=== PATIENT | male | born 1980 | race Caucasian/White ===

== ENCOUNTER 2017-07-17 01:19 | Emergency (ER) | payer BC ==
[2017-07-17 02:05] LABS: BASO % 0.6 % (0.0-1.0); EOS # 0.1 10^3/uL (0.0-0.50); EOS % 1.8 % (0.0-3.0); HEMATOCRIT 44.6 % (42.0-52.0); HEMOGLOBIN 15.9 g/dl (14.0-18.0); IMMATURE GRANULOCYTE % 0.4 % (0-3.0); LYMPH # 2.4 10^3/uL (1.5-4.5); LYMPH % 33.5 % (24.0-44.0); MEAN CORPUSCULAR HEMOGLOBIN 32.6 pg (27.0-33.0); MEAN CORPUSCULAR HGB CONC 35.7 g/dl (32.0-36.5); MEAN CORPUSCULAR VOLUME 91.6 fl (80.0-96.0); MONO # 0.6 10^3/uL (0.0-0.8); MONO % 8.8 % (0.0-5.0); NEUTROPHILS # 3.9 10^3/uL (1.8-7.7); NEUTROPHILS % 54.9 % (36.0-66.0); PLATELET COUNT, AUTOMATED 234 10^3/uL (150-450); RED BLOOD COUNT 4.87 10^6/uL (4.30-6.10); RED CELL DISTRIBUTION WIDTH 11.9 % (11.5-14.5); WHITE BLOOD COUNT 7.1 10^3/uL (4.0-10.0)
[2017-07-17 02:22] LABS: ALBUMIN/GLOBULIN RATIO 1.14 (1.00-1.93); ALKALINE PHOSPHATASE 78 U/L (45-117); ALT/SGPT 28 U/L (12-78); AMPHETAMINES LEVEL URINE NEGATIVE (NEGATIVE); ANION GAP 9 MEQ/L (8-16); AST/SGOT 16 U/L (7-37); BARBITURATES URINE NEGATIVE (NEGATIVE); BENZODIAZEPINES URINE NEGATIVE (NEGATIVE); BILIRUBIN,DIRECT < 0.1 MG/DL (0.0-0.2); BILIRUBIN,TOTAL 0.2 MG/DL (0.2-1.0); BLOOD UREA NITROGEN 15 MG/DL (7-18); CALCIUM LEVEL 8.6 MG/DL (8.5-10.1); CANNABINOIDS URINE NEGATIVE (NEGATIVE); CARBON DIOXIDE LEVEL 26 MEQ/L (21-32); CHLORIDE LEVEL 109 MEQ/L (98-107); COCAINE METABOLITE URINE NEGATIVE (NEGATIVE); CPK CREATINE PHOSPHOKINASE 101 U/L (39-308); CREATININE FOR GFR 0.81 MG/DL (0.70-1.30); ETHYL ALCOHOL (ETHANOL) 0.214 % (0.000-0.010); GLOMERULAR FILTRATION RATE > 60.0 (>60); GLUCOSE, FASTING 70 MG/DL (70-100); METHADONE URINE NEGATIVE (NEGATIVE); OPIATES URINE NEGATIVE (NEGATIVE); PHENCYCLIDINE URINE NEGATIVE (NEGATIVE); POTASSIUM SERUM 3.9 MEQ/L (3.5-5.1); SALICYLATE LEVEL 3.3 MG/DL (5.0-30.0); SODIUM LEVEL 144 MEQ/L (136-145); TOTAL PROTEIN 7.5 GM/DL (6.4-8.2)
[2017-07-17 02:43] LABS: ACETAMINOPHEN LEVEL < 2.0 UG/ML (10.0-30.0)
== END 2017-07-17 13:05 | disposition home or self-care (01) ==
LOC: M ED 01:19
DX: T50.992A Poisoning by other drugs, medicaments and biological substances, intentional self-harm, initial encounter (principal); Y92.018 Other place in single-family (private) house as the place of occurrence of the external cause; F10.229 Alcohol dependence with intoxication, unspecified; Y90.1 Blood alcohol level of 20-39 mg/100 ml; R45.851 Suicidal ideations; Z91.030 Bee allergy status; F17.210 Nicotine dependence, cigarettes, uncomplicated
CPT/HCPCS: 93005

== ENCOUNTER → 2020-01-24 | Outpatient (REF) | payer BC ==
[2020-01-24 16:07] LABS: BASO % 0.8 % (0.0-1.0); EOS # 0.1 10^3/uL (0.0-0.5); EOS % 1.7 % (0.0-3.0); HEMATOCRIT 46.1 % (42.0-52.0); HEMOGLOBIN 15.9 g/dl (13.5-17.5); LYMPH # 1.7 10^3/uL (1.5-5.0); LYMPH % 31.7 % (24.0-44.0); MEAN CORPUSCULAR HEMOGLOBIN 32.4 pg (27.0-33.0); MEAN CORPUSCULAR HGB CONC 34.5 g/dl (32.0-36.5); MEAN CORPUSCULAR VOLUME 93.9 fl (80.0-96.0); MONO # 0.5 10^3/uL (0.0-0.8); MONO % 9.9 % (0.0-5.0); NEUTROPHILS # 2.9 10^3/uL (1.5-8.5); NEUTROPHILS % 55.5 % (36.0-66.0); PLATELET COUNT, AUTOMATED 233 10^3/uL (150-450); RED BLOOD COUNT 4.91 10^6/uL (4.30-6.10); WHITE BLOOD COUNT 5.3 10^3/uL (4.0-10.0)
[2020-01-24 16:22] LABS: ALBUMIN 3.6 GM/DL (3.2-5.2); ALT/SGPT 37 U/L (12-78); BILIRUBIN,TOTAL 0.4 MG/DL (0.2-1.0); BLOOD UREA NITROGEN 17 MG/DL (7-18); CARBON DIOXIDE LEVEL 30 MEQ/L (21-32); CHLORIDE LEVEL 103 MEQ/L (98-107); CHOLESTEROL LEVEL 205 MG/DL (<200); CHOLESTEROL RISK RATIO 3.153 (<5); CREATININE FOR GFR 0.86 MG/DL (0.70-1.30); GLOMERULAR FILTRATION RATE > 60.0 (>60); GLUCOSE, FASTING 84 MG/DL (70-100); HDL CHOLESTEROL 65 MG/DL (>40); LDL CHOLESTEROL 126 MG/DL (<100); NON-HDL-C 140 MG/DL; POTASSIUM SERUM 5.1 MEQ/L (3.5-5.1); SODIUM LEVEL 136 MEQ/L (136-145); TRIGLYCERIDES LEVEL 71 MG/DL (<150)
== END ==
LOC: M SFHCADAM 15:53
PROVIDERS: ATTEND Family Medicine
DX: Z00.00 Encounter for general adult medical examination without abnormal findings (principal); E66.3 Overweight; R03.0 Elevated blood-pressure reading, without diagnosis of hypertension

== ENCOUNTER → 2021-09-25 | Outpatient (CLI) | payer BC | LOC: M RAD 09:09 | PROVIDERS: ATTEND Family Medicine | DX: R10.811 Right upper quadrant abdominal tenderness (principal) ==

== ENCOUNTER → 2021-12-06 | Outpatient (REF) | payer BC ==
[2021-12-06 14:10] LABS: BASO % 0.8 % (0.0-1.0); EOS # 0.1 10^3/uL (0.0-0.5); EOS % 1.5 % (0.0-3.0); HEMATOCRIT 45.5 % (42.0-52.0); HEMOGLOBIN 15.8 g/dl (13.5-17.5); LYMPH # 1.8 10^3/uL (1.5-5.0); LYMPH % 38.4 % (24.0-44.0); MEAN CORPUSCULAR HEMOGLOBIN 31.2 pg (27.0-33.0); MEAN CORPUSCULAR HGB CONC 34.7 g/dl (32.0-36.5); MEAN CORPUSCULAR VOLUME 89.9 fl (80.0-96.0); MONO # 0.5 10^3/uL (0.0-0.8); MONO % 10.6 % (2.0-8.0); NEUTROPHILS # 2.3 10^3/uL (1.5-8.5); NEUTROPHILS % 48.5 % (36.0-66.0); PLATELET COUNT, AUTOMATED 224 10^3/uL (150-450); RED BLOOD COUNT 5.06 10^6/uL (4.30-6.10); WHITE BLOOD COUNT 4.8 10^3/uL (4.0-10.0)
[2021-12-06 17:00] LABS: ALBUMIN 3.8 GM/DL (3.2-5.2); ALT/SGPT 33 U/L (12-78); BILIRUBIN,TOTAL 0.3 MG/DL (0.2-1.0); BLOOD UREA NITROGEN 15 MG/DL (7-18); CALCIUM LEVEL 8.8 MG/DL (8.5-10.1); CARBON DIOXIDE LEVEL 27 MEQ/L (21-32); CHLORIDE LEVEL 106 MEQ/L (98-107); CHOLESTEROL LEVEL 152 MG/DL (<200); CREATININE FOR GFR 0.96 MG/DL (0.70-1.30); FREE T4 0.99 NG/DL (0.76-1.46); GLOMERULAR FILTRATION RATE > 60.0 (>60); GLUCOSE, FASTING 98 MG/DL (70-100); HDL CHOLESTEROL 58 MG/DL (>40); LDL CHOLESTEROL 83 MG/DL (<100); NON-HDL-C 94 MG/DL; POTASSIUM SERUM 4.5 MEQ/L (3.5-5.1); SODIUM LEVEL 138 MEQ/L (136-145); THYROID STIMULATING HORMONE 0.807 uIU/ML (0.358-3.740); TRIGLYCERIDES LEVEL 56 MG/DL (<150)
== END ==
LOC: M SFHCADAM 11:12
PROVIDERS: ATTEND Family Medicine
DX: Z00.00 Encounter for general adult medical examination without abnormal findings (principal)

== ENCOUNTER 2022-01-17 14:27 | Emergency (ER) | payer BC ==
[~2022-01-17] VITALS: Ht 185.4 cm; Wt 90.9 kg
[2022-01-17 14:45] VITALS: BP 136/68
[2022-01-17] MEDS ORDERED: methylPREDNISolone 125MG 2ML VIAL IV ONE (14:45)
[2022-01-17] MEDS ORDERED: diphenhydrAMINE 50MG/ML VIAL (J1200) IV ONE (14:45)
[2022-01-17] MEDS ORDERED: FAMOTIDINE 20MG/2ML VIAL IVP ONE (14:50)
[2022-01-17] MEDS ORDERED: PRED20TA PO (15:13)
[2022-01-17] MEDS ORDERED: EPIP0.3I2 IM (15:13)
== END 2022-01-17 16:58 | disposition home or self-care (01) ==
LOC: M ED 14:27
DX: S50.862A Insect bite (nonvenomous) of left forearm, initial encounter (principal); T63.441A Toxic effect of venom of bees, accidental (unintentional), initial encounter; K21.9 Gastro-esophageal reflux disease without esophagitis; Z91.030 Bee allergy status
CPT/HCPCS: 93041; 94760; 96374; 96375; 99284; J1200; J2930

== ENCOUNTER → 2023-11-04 | Outpatient (REF) | payer OTHER ==
[~2023-11-04] MED LIST: EPIP0.3I2 IM; PRED20TA PO
[2023-11-04 14:22] LABS: BASO % 0.8 % (0.0-1.0); EOS # 0.1 10^3/uL (0.0-0.5); EOS % 2.3 % (0.0-3.0); HEMATOCRIT 47.5 % (42.0-52.0); HEMOGLOBIN 16.1 g/dl (13.5-17.5); LYMPH # 1.8 10^3/uL (1.5-5.0); LYMPH % 36.8 % (24.0-44.0); MEAN CORPUSCULAR HEMOGLOBIN 30.9 pg (27.0-33.0); MEAN CORPUSCULAR HGB CONC 33.9 g/dl (32.0-36.5); MEAN CORPUSCULAR VOLUME 91.2 fl (80.0-96.0); MONO # 0.5 10^3/uL (0.0-0.8); MONO % 10.4 % (2.0-8.0); NEUTROPHILS # 2.4 10^3/uL (1.5-8.5); NEUTROPHILS % 49.5 % (36.0-66.0); PLATELET COUNT, AUTOMATED 242 10^3/uL (150-450); RED BLOOD COUNT 5.21 10^6/uL (4.30-6.10); WHITE BLOOD COUNT 4.8 10^3/uL (4.0-10.0)
[2023-11-04 14:28] LABS: ALBUMIN 3.9 G/DL (3.2-5.2); ALKALINE PHOSPHATASE 69 U/L (46-116); ALT/SGPT 26 U/L (7.0-40); AST/SGOT 13 U/L (<34); BILIRUBIN,TOTAL 0.6 MG/DL (0.3-1.2); BLOOD UREA NITROGEN 16 MG/DL (9-23); CARBON DIOXIDE LEVEL 30 MMOL/L (20-31); CHLORIDE LEVEL 104 MMOL/L (98-107); CHOLESTEROL LEVEL 184 MG/DL (<200); CHOLESTEROL RISK RATIO 3.36 (<5); GLOMERULAR FILTRATION RATE > 60.0 (>60); GLUCOSE, FASTING 97 MG/DL (60-100); HDL CHOLESTEROL 54.7 MG/DL (>40); LDL CHOLESTEROL 115.7 MG/DL (<100); NON-HDL-C 129.3 MG/DL; POTASSIUM SERUM 4.8 MMOL/L (3.5-5.1); SODIUM LEVEL 136 MMOL/L (136-145); TOTAL PROTEIN 6.7 G/DL (5.7-8.2); TRIGLYCERIDES LEVEL 68 MG/DL (<150)
[2023-11-04 14:30] LABS: THYROID STIMULATING HORMONE 1.137 uIU/ML (0.55-4.78)
[2023-11-04 14:31] LABS: FREE T4 1.18 NG/DL (0.89-1.76)
== END ==
LOC: M SFHCADAM 07:46
PROVIDERS: ATTEND Family Medicine
DX: Z00.00 Encounter for general adult medical examination without abnormal findings (principal)

== ENCOUNTER 2024-05-13 07:23 | Day surgery (SDC) | payer OTHER ==
[~2024-05-13] VITALS: Ht 185.4 cm; Wt 91.2 kg
[2024-05-13] MEDS ORDERED: LR 1,000 ML IV SCH ×2 (08:05→13:40)
[2024-05-13] MEDS ORDERED: LIDOCAINE 2% 100MG/5ML SDV (FOR ANES.) As Ordered ONE (08:30)
[2024-05-13] MEDS ORDERED: MIDAZOLAM INJ 2MG/2ML VIAL As Ordered ONE (08:30)
[2024-05-13] MEDS ORDERED: propofoL 200 MG/20 ML VIAL As Ordered ONE (08:30)
[2024-05-13] MEDS ORDERED: fentaNYL 100 MCG/2 ML INJECTION As Ordered ONE (08:31)
[2024-05-13] MEDS ORDERED: ROCURONIUM BROMIDE 50MG/5ML VIAL As Ordered ONE (08:32)
[2024-05-13] MEDS ORDERED: BACITRACIN OINTMENT 30GM TUBE As Ordered ONE (08:33)
[2024-05-13] MEDS ORDERED: ONDANSETRON 4MG 2ML VIAL As Ordered ONE (09:00)
[2024-05-13] MEDS ORDERED: ACETAMINOPHEN 1000MG/100ML IV BAG As Ordered ONE (09:04)
[2024-05-13] MEDS: LIDOCAINE W/EPINEPHRINE 1% 20ML VIAL As Ordered ONE (09:10)
[2024-05-13] MEDS ORDERED: KETOROLAC 60MG 2ML VIAL As Ordered ONE (09:13)
[2024-05-13] MEDS ORDERED: SUGAMMADEX SODIUM 500 MG/5 ML VIAL (BRIDION) As Ordered ONE (09:13)
[2024-05-13] MEDS ORDERED: METOCLOPRAMIDE INJ 10MG/2ML VIAL As Ordered ONE (09:13)
[2024-05-13] MEDS ORDERED: oxyCODONE 5MG TAB PO PRN (11:10)
[2024-05-13] MEDS ORDERED: fentaNYL 100 MCG/2 ML INJECTION IV PRN (11:10)
[2024-05-13] MEDS: ONDANSETRON 4MG 2ML VIAL IV PRN (11:18)
[2024-05-13] MEDS: PROMETHAZINE 25MG/ML 1ML VIAL IV ONE (11:23)
[2024-05-13] MEDS: BACITRACIN OINTMENT 30GM TUBE TOP PRN (11:40)
[2024-05-13 12:05] VITALS: BP 138/95; TEMP 97; O2SAT 98
[2024-05-13] MEDS ORDERED: ANEXSIA, NORCO 7.5MG/325MG TABLET(HYDROCODONE/APAP) PO PRN (13:40)
== END 2024-05-13 12:22 | disposition home or self-care (01) ==
LOC: M SDC 07:23
PROVIDERS: ATTEND Otolaryngology
DX: D17.0 Benign lipomatous neoplasm of skin and subcutaneous tissue of head, face and neck (principal); Z91.030 Bee allergy status; Z87.891 Personal history of nicotine dependence
CPT/HCPCS: 21556; 88305; J0131; J1100; J1885; J2250; J2405; J2550; J2765; J3010